=== PATIENT | male | born 1985 | race Caucasian/White ===

== ENCOUNTER → 2017-08-21 | Emergency (ER) | payer MEDICAID ==
[~2017-08-21] VITALS: Ht 180.3 cm; Wt 86.4 kg
[~2017-08-21] MED LIST: BUPIVAcaine/PF 2.5 mg/ml (0.25%) 30ml vial IJ ONE; ROPIVAcaine 0.5% (5mg/ml) 30ml vial ONE; TETanus/Pertussis (Acell)/Diphther VAC/PF (Tdap-Adult) 0.5ml syringe IM ONE; acetaminophen 325mg tablet PO ONE
[2017-08-21 15:15] VITALS: BP 134/88
== END | disposition home or self-care (01) ==
LOC: ER 13:11
DX: S06.0X0A Concussion without loss of consciousness, initial encounter (principal); S01.01XA Laceration without foreign body of scalp, initial encounter; F17.200 Nicotine dependence, unspecified, uncomplicated; F12.10 Cannabis abuse, uncomplicated; F15.10 Other stimulant abuse, uncomplicated; K21.9 Gastro-esophageal reflux disease without esophagitis; Z56.0 Unemployment, unspecified; Y09 Assault by unspecified means
CPT/HCPCS: 12002; 70450; 90471; 90715; 99284; A6449; J3490; J2795